=== PATIENT | female | born 1955 | race Caucasian/White ===

== ENCOUNTER → 2017-08-12 | Outpatient (CLI) | payer OTHER | LOC: FIMAGING 12:56 | PROVIDERS: ATTEND Family Medicine | DX: Z12.31 Encounter for screening mammogram for malignant neoplasm of breast (principal); Z80.3 Family history of malignant neoplasm of breast | CPT/HCPCS: G0202 ==

== ENCOUNTER → 2018-04-14 | Outpatient (CLI) | payer OTHER | LOC: FIMAGING 09:33 | PROVIDERS: ATTEND Otolaryngology | DX: R13.14 Dysphagia, pharyngoesophageal phase (principal) ==

== ENCOUNTER → 2018-05-12 | Outpatient (CLI) | payer OTHER ==
[~2018-05-12] MED LIST: IOPAMIDOL (ISOVUE 370) 100 ML BTL IV ONE
== END ==
LOC: FIMAGING 11:52
PROVIDERS: ATTEND Internal Medicine Cardiovascular Disease
DX: J40 Bronchitis, not specified as acute or chronic (principal); I51.7 Cardiomegaly
CPT/HCPCS: Q9967

== ENCOUNTER 2018-06-08 07:14 | Day surgery (SDC) | payer OTHER ==
[2018-06-08] MEDS ORDERED: FAMOTIDINE 20 MG TAB PO ONE (07:15)
[2018-06-08] MEDS ORDERED: NS 1,000 ML IV ONE (07:15)
[2018-06-08] MEDS ORDERED: DIAZEPAM 5 MG TAB PO ONE (07:15)
[2018-06-08] MEDS ORDERED: diphenhydrAMINE 25 MG CAP PO ONE (07:15)
[2018-06-08] MEDS ORDERED: ASPIRIN EC 325 MG TAB PO ONE (07:15)
[2018-06-08 08:00] LABS: PLATELET COUNT 304 10^3/uL (150-400)
[2018-06-08 08:18] LABS: INR 1.02 (0.83-1.16); PROTIME(PATIENT) 13.6 SEC (12.0-15.0)
[2018-06-08] MEDS ORDERED: LIDOCAINE 1% 300 MG/30 ML SDV ONE (08:45)
[2018-06-08] MEDS ORDERED: HEPARIN 10,000 UNIT/10 ML MDV (1,000 UNIT/ML) ONE (08:46)
[2018-06-08] MEDS ORDERED: fentaNYL 100 MCG/2 ML INJ ONE (08:46)
[2018-06-08] MEDS ORDERED: VERAPAMIL 5 MG/2 ML VIAL ONE (08:46)
[2018-06-08] MEDS ORDERED: MIDAZOLAM 2 MG/2 ML VIAL ONE (08:46)
[2018-06-08] MEDS ORDERED: IOPAMIDOL (ISOVUE-370) 150 ML BTL IV ONE (08:47)
--- NOTE | 2018-06-08 09:39 | PDHPUP ---
History & Physical Update H&P update statement: This history and physical update is based on an assessment of the patient which was completed after admission or registration (within 24 hours), but prior to the surgery/procedure. H&P update: H&P reviewed & patient examined, no change in patient's condition since H&P completed (Sulaiman test on rt wrist normal at < 5 sec.)
--- NOTE | 2018-06-08 09:39 | PDPROPOC ---
Sedation Plan of Care Sedation Plan of Care: vital signs stable, mental status noted, patient educated of risks, benefits, alternatives, patient can tolerate sedation ASA Classification: ASA 1 Planned drugs: fentanyl, midazolam Mallampati Score: Class 1 Mallampati Reference Image: Patient passed 3-3-2 rule?: Yes
[2018-06-08] MEDS ORDERED: ONDANSETRON 4 MG/2 ML VIAL IVP PRN (10:47)
[2018-06-08] MEDS ORDERED: ATROPINE SULFATE 1 MG/10 ML SYR IVP PRN (10:47)
[2018-06-08] MEDS ORDERED: HYDROCODONE/APAP 5/325 TAB PO PRN (10:47)
--- NOTE | 2018-06-08 11:05 | PDDXCAT ---
Diagnostic Cath Note - . Date: 06/08/18 Crematory Operator: Benjamin Indication: other (Chest pain and abnormal stress test) - Procedure Access: right wrist Procedure: left heart catheterization, coronary angiography, left ventriculogram - Materials Left Heart Cath size: 4F Left Heart Cath materials: standard multipack (JL4, JR4, pigtail) - Findings-Left Heart Catheterization LM: Angiographically normal. LAD: Angiographically normal. LCX: Angiographically normal. RCA: Angiographically normal. EDP: 17 mmHg LVEF: 60% Wall motion: Normal Complications: None Closure method: TR Band Assessment: 1) Normal coronary arteries. 2) Normal LV function.
--- NOTE | 2018-06-09 08:54 | CPEKG ---
Test Reason : OPEN Blood Pressure : / mmHG Vent. Rate : 065 BPM Atrial Rate : 064 BPM P-R Int : 157 ms QRS Dur : 102 ms QT Int : 446 ms P-R-T Axes : 061 026 004 degrees QTc Int : 464 ms Sinus rhythm Atrial premature complex Minimal ST depression, inferior leads Confirmed by Jimy Bowden ([id number] on 06/09/2018 8:54:02 AM Referred By: Confirmed By:Jimy Bowden
== END 2018-06-08 15:00 | disposition home or self-care (01) ==
LOC: FCATH 07:14
PROVIDERS: ATTEND Internal Medicine Interventional Cardiology
PROC: B2111ZZ Fluoroscopy of Multiple Coronary Arteries using Low Osmolar Contrast (ICD-10-PCS; principal; 2018-06-08)
PROC: 4A023N7 Measurement of Cardiac Sampling and Pressure, Left Heart, Percutaneous Approach (ICD-10-PCS; principal; 2018-06-08)
PROC: B2151ZZ Fluoroscopy of Left Heart using Low Osmolar Contrast (ICD-10-PCS; principal; 2018-06-08)
DX: R07.9 Chest pain, unspecified (principal)
CPT/HCPCS: 93005; 93458; C1769; J1644; J2250; J3010; Q9967

== ENCOUNTER → 2018-06-30 | Outpatient (CLI) | payer OTHER | LOC: FIMAGING 14:56 | PROVIDERS: ATTEND Allergy & Immunology Allergy | DX: R07.89 Other chest pain (principal) ==

== ENCOUNTER → 2018-09-08 | Outpatient (CLI) | payer OTHER | LOC: FIMAGING 11:09 | PROVIDERS: ATTEND Family Medicine | DX: Z12.31 Encounter for screening mammogram for malignant neoplasm of breast (principal); Z80.3 Family history of malignant neoplasm of breast ==